=== PATIENT | female | born 1985 | race Two or more races ===

== ENCOUNTER 2020-04-09 11:12 | Emergency (ER) | payer MEDICAID, OTHER ==
[~2020-04-09] VITALS: Ht 160 cm; Wt 49.9 kg
[2020-04-09 11:41] VITALS: BP 117/78
[2020-04-09 12:40] LABS: Urine Bacteria NONE SEEN /hpf (None Seen); Urine Blood Negative /uL (Negative); Urine Specific Gravity 1.007 (1.001-1.035); Urine WBC 27 /hpf (0 - 5)
== END 2020-04-09 13:12 | disposition home or self-care (01) ==
LOC: ER 11:12
DX: N30.00 Acute cystitis without hematuria (principal); N76.0 Acute vaginitis; Z32.02 Encounter for pregnancy test, result negative
CPT/HCPCS: 81001; 81025

== ENCOUNTER 2020-04-29 18:18 | Emergency (ER) | payer MEDICAID ==
[~2020-04-29] VITALS: Ht 160 cm; Wt 49.9 kg
[2020-04-29 18:55] VITALS: BP 114/75
[2020-04-29 21:35] LABS: Urine Bacteria NONE SEEN /hpf (None Seen); Urine Blood 2+ /uL (Negative); Urine Mucus FEW (None Seen); Urine WBC 8 /hpf (0 - 5)
== END 2020-04-30 01:03 | disposition home or self-care (01) ==
LOC: ER 18:18
DX: N30.01 Acute cystitis with hematuria (principal); Z32.02 Encounter for pregnancy test, result negative
CPT/HCPCS: 36415; 81001; 81025; 84702